=== PATIENT | female | born 1990 | race Two or more races ===

== ENCOUNTER → 2021-01-12 15:56 | Outpatient (CLI) | payer OTHER | END | disposition home or self-care (01) | LOC: PPH VACUNA 15:56 | DX: Z23 Encounter for immunization (principal) ==

== ENCOUNTER 2025-06-30 07:00 | Day surgery (SDC) | payer OTHER ==
[2025-06-26 10:19] LABS: BASO % 0.6 % (0.1-1.2); EOS # 0.06 (0.04-0.54); EOS % 0.7 % (0.7-7.0); LYMPH # 1.56 (1.18-3.74); LYMPH % 18.3 % (19.3-53.1); MONO # 0.32 (0.24-0.82); MONO % 3.8 % (4.7-12.5); NEUT # 6.52 (1.56-6.13); NEUT % 76.4 % (34.0-71.1); RED CELL DISTRIBUTION WIDTH 19.2 % (11.6-14.4)
[2025-06-26 10:24] VITALS: BP 115/79
[2025-06-26 10:35] LABS: URINE APPEARANCE Clear; URINE BILIRRUBIN Negative (NEGATIVE); URINE BLOOD Trace; URINE COLOR Yellow; URINE GLUCOSE Negative (NEGATIVE); URINE KETONE Trace (NEGATIVE); URINE LEUKOCYTE Negative; URINE NITRATE Negative; URINE PROTEIN Negative (NEGATIVE); URINE UROBILINOGEN 1.0 E.U./dl
[2025-06-26 10:36] LABS: URINE BACTERIA 138.0 uL (0.0-1933); URINE EPITHELIAL CELLS 47.5 uL (0.0-38.8); URINE RBC 7.9 uL (0.0-20.8); URINE WBC 6.4 uL (0.0-23.2)
[2025-06-26 10:37] LABS: INR 1.08
[2025-06-26 10:38] LABS: URINE CAST 0.29 uL (0.0-1.40)
[2025-06-26 11:03] LABS: ALT/SGPT 19.0 U/L (12-78); AST/SGOT 15.0 U/L (15-37); BILIRUBIN TOTAL 0.48 mg/dL (0.3-1.2); BUN CREA RATIO 11.0 (7.0-25.0); CREATININE SERUM 0.53 mg/dL (0.55-1.02); GFR 132.85; GLOBULINA 3.2 G/DL (2.4-3.5); GLUCOSE FASTING 94.0 mg/dL (65-100); OSMOLALITY SERUM 282.0 MOSM/KG (275-295)
[~2025-06-30] VITALS: Ht 149.9 cm; Wt 78.5 kg
[2025-06-30] MEDS ORDERED: POVIDONE-IODINE 118 ML BOTT TOP ONE (08:34)
[2025-06-30] MEDS ORDERED: KETOROLAC TROMETHAMINE 60 MG VIAL IM ONE ×2 (09:45→12:19)
[2025-06-30] MEDS ORDERED: ONDANSETRON HCL 2 MG/ML VIAL IV ONE (09:45)
== END 2025-06-30 16:25 | disposition home or self-care (01) ==
LOC: CIR.AMB 07:00
PROVIDERS: ATTEND Obstetrics & Gynecology
DX: N84.0 Polyp of corpus uteri (principal); N93.8 Other specified abnormal uterine and vaginal bleeding